=== PATIENT | female | born 1965 | race African-American/Black ===

== ENCOUNTER 2020-11-23 18:11 | Inpatient (IN) ==
[2020-11-23 20:54] LABS: Basophils % 0.7 % (0.0-0.8); Eosinophils # 0.2 10*3/uL (0.0-0.87); Eosinophils % 2.6 % (0.00-10.9); Hematocrit 46.5 VOL% (35.7-47.0); Hemoglobin 15.4 GM/DL (12.0-16.0); Immature Granulocytes % 0.3 %; Immature Granulocytes Absolute 0.02 #; Lymphocytes # 1.4 10*3/uL (1.4-4.0); Lymphocytes % 22.8 % (21.3-54.2); Mean Corpuscular HGB Conc 33.1 GM/DL (32-36); Mean Corpuscular Volume 77.4 FL (87-102); Mean Platelet Volume 11.1 FL (9.6-12.0); Monocytes % 11.1 % (1.7-12.7); Neutrophils % 62.5 % (38.7-73.9); Platelet Count 185 T/CUMM (130-400); Red Blood Count 6.01 MC/CUMM (3.8-5.5); White Blood Count 6.1 T/CUMM (4-12)
[2020-11-23 21:13] LABS: Albumin 3.7 G/DL (3.4-5.0); Bilirubin,Total 0.5 MG/DL (0.2-1.0); Ferritin 160.7 ng/ml (8-252); Osmolality,Calculated 265.7 MOS/KG (273-304); Potassium 3.3 MMOL/L (3.5-5.1); Total Protein 9.4 G/DL (5.0-7.5)
[2020-11-23 22:39] LABS: Lymphocytes 25 % (20-55); Platelet Estimate Normal; Segmented Neutrophils 64 % (50-85); Total Cells Counted 100
[2020-11-23 22:40] LABS: Anisocytosis 1+; Microcytosis 2+
[2020-11-23 22:43] LABS: Ovalocytes Slight; Target Cells Slight
[2020-11-23] MEDS ORDERED: DEXAMETHASONE 10 MG/1 ML VIAL IV STA (23:42)
[2020-11-24] MEDS ORDERED: AZITHROMYCIN INJ 500 MG in SODIUM CHLORIDE 0.9% 250 ML IV ONE (00:21)
[2020-11-24] MEDS ORDERED: DEXTROSE 50% 25 GM/50 ML VIAL IV PRN (00:45)
[2020-11-24] MEDS ORDERED: ACETAMINOPHEN 325 MG TABLET PO PRN (00:45)
[2020-11-24] MEDS ORDERED: DOCUSATE SODIUM 100 MG CAPSULE PO PRN (00:45)
[2020-11-24] MEDS ORDERED: GLUCAGON 1 MG VIAL IM PRN (00:45)
[2020-11-24] MEDS ORDERED: hydrALAZINE 20 MG/1 ML VIAL IV PRN (00:45)
[2020-11-24] MEDS ORDERED: ONDANSETRON 4 MG/2 ML VIAL IV PRN (00:45)
[2020-11-24] MEDS ORDERED: SODIUM CHLORIDE 0.9% 1,000 ML IV SCH (01:00)
[2020-11-24] MEDS ORDERED: MAGNESIUM SULF RIDER 2 GM in PREMIX 1 EACH IV PRN (01:06)
[2020-11-24] MEDS ORDERED: MAGNESIUM SULF RIDER 4 GM in PREMIX 1 EACH IV PRN (01:06)
[2020-11-24] MEDS: ENOXAPARIN 40 MG/0.4 ML SYRINGE SUBCUT SCH ×2 (02:18→20:05)
[2020-11-24] MEDS: POTASSIUM CHLORIDE 20 MEQ TABLET PO PRN ×3 (02:18→05:39)
[2020-11-24 03:58] LABS: Basophils % 0.5 % (0.0-0.8); Hematocrit 43.9 VOL% (35.7-47.0); Hemoglobin 14.1 GM/DL (12.0-16.0); Immature Granulocytes % 0.2 %; Immature Granulocytes Absolute 0.01 #; Lymphocytes # 1.2 10*3/uL (1.4-4.0); Lymphocytes % 20.2 % (21.3-54.2); Mean Corpuscular HGB Conc 32.1 GM/DL (32-36); Mean Corpuscular Volume 78.8 FL (87-102); Mean Platelet Volume 11.3 FL (9.6-12.0); Monocytes % 6.4 % (1.7-12.7); Neutrophils % 72.7 % (38.7-73.9); Platelet Count 182 T/CUMM (130-400); Red Blood Count 5.57 MC/CUMM (3.8-5.5); Red Cell Distribution Width 16.2 % (9.3-17.3)
[2020-11-24 04:26] LABS: Ferritin 110.4 ng/ml (8-252)
[2020-11-24 04:53] LABS: Calcium 8.8 MG/DL (8.5-10.1); Osmolality,Calculated 263.8 MOS/KG (273-304); Potassium 3.8 MMOL/L (3.5-5.1)
[2020-11-24] MEDS: ALBUTEROL INHALER 18 GM INH SCH ×3 (06:45→18:05)
[2020-11-24 07:14] LABS: Platelet Estimate Normal
[2020-11-24 07:15] LABS: Anisocytosis Slight
[2020-11-24] MEDS: DEXAMETHASONE 4 MG/1 ML VIAL IV SCH (08:28)
[2020-11-24] MEDS: CETIRIZINE 10 MG TABLET PO SCH (08:29)
[2020-11-24] MEDS: ZINC GLUCONATE 50 MG TABLET PO SCH (08:29)
[2020-11-24] MEDS: ASCORBIC ACID 500 MG TABLET PO SCH ×2 (08:29→20:05)
[2020-11-24] MEDS: CHOLECALCIFEROL 1,000 UNIT TABLET PO SCH (08:29)
[2020-11-24] MEDS: FAMOTIDINE 20 MG TABLET PO SCH ×2 (08:29→20:05)
[2020-11-24] MEDS ORDERED: REMDESIVIR 200 MG in SODIUM CHLORIDE 0.9% 210 ML IV ONE (09:30)
[2020-11-24] MEDS: cefTRIAXone 1,000 MG in SYRINGE 1 EACH IV SCH (11:58)
[2020-11-24] MEDS: MELATONIN 3 MG TABLET PO PRN (20:05)
[2020-11-25] MEDS: ALBUTEROL INHALER 18 GM INH SCH ×4 (00:15→20:16)
[2020-11-25 04:06] LABS: Basophils % 0.2 % (0.0-0.8); Hematocrit 40.6 VOL% (35.7-47.0); Hemoglobin 13.2 GM/DL (12.0-16.0); Immature Granulocytes % 0.2 %; Immature Granulocytes Absolute 0.01 #; Lymphocytes # 1.5 10*3/uL (1.4-4.0); Mean Corpuscular HGB Conc 32.5 GM/DL (32-36); Mean Corpuscular Volume 78.8 FL (87-102); Monocytes % 18.4 % (1.7-12.7); Neutrophils % 43.2 % (38.7-73.9); Platelet Count 201 T/CUMM (130-400); Red Blood Count 5.15 MC/CUMM (3.8-5.5); Red Cell Distribution Width 16.1 % (9.3-17.3)
[2020-11-25 04:19] LABS: Calcium 8.3 MG/DL (8.5-10.1); Osmolality,Calculated 275.1 MOS/KG (273-304); Potassium 3.7 MMOL/L (3.5-5.1)
[2020-11-25 04:21] LABS: Ferritin 183.9 ng/ml (8-252)
[2020-11-25 04:22] LABS: Albumin 2.8 G/DL (3.4-5.0); Bilirubin,Total 0.5 MG/DL (0.2-1.0); Calcium 8.2 MG/DL (8.5-10.1); Osmolality,Calculated 274.1 MOS/KG (273-304); Potassium 3.7 MMOL/L (3.5-5.1); Total Protein 7.5 G/DL (5.0-7.5)
[2020-11-25 07:29] LABS: Band Neutrophils 4 % (0-10); Lymphocytes 36 % (20-55); Segmented Neutrophils 46 % (50-85); Total Cells Counted 100
[2020-11-25 07:30] LABS: Hypochromasia 2+; Platelet Estimate Normal
[2020-11-25] MEDS: ZINC GLUCONATE 50 MG TABLET PO SCH (08:15)
[2020-11-25] MEDS: CHOLECALCIFEROL 1,000 UNIT TABLET PO SCH (08:15)
[2020-11-25] MEDS: ASCORBIC ACID 500 MG TABLET PO SCH ×2 (08:15→20:17)
[2020-11-25] MEDS: AZITHROMYCIN 250 MG TABLET PO SCH (08:15)
[2020-11-25] MEDS: atenoloL 25 MG TABLET PO SCH (08:15)
[2020-11-25] MEDS: FAMOTIDINE 20 MG TABLET PO SCH ×2 (08:16→20:17)
[2020-11-25] MEDS: CETIRIZINE 10 MG TABLET PO SCH (08:18)
[2020-11-25] MEDS: DEXAMETHASONE 4 MG/1 ML VIAL IV SCH (08:20)
[2020-11-25] MEDS: cefTRIAXone 1,000 MG in SYRINGE 1 EACH IV SCH (08:29)
[2020-11-25] MEDS: REMDESIVIR 100 MG in SODIUM CHLORIDE 0.9% 100 ML IV SCH (09:30)
[2020-11-25] MEDS: ENOXAPARIN 40 MG/0.4 ML SYRINGE SUBCUT SCH (20:16)
[2020-11-25] MEDS: MELATONIN 3 MG TABLET PO PRN (20:17)
[2020-11-26] MEDS: ALBUTEROL INHALER 18 GM INH SCH ×2 (00:36→06:05)
[2020-11-26 06:15] LABS: Albumin 2.7 G/DL (3.4-5.0); Bilirubin,Total 1.5 MG/DL (0.2-1.0); Calcium 8.4 MG/DL (8.5-10.1); Ferritin 189.2 ng/ml (8-252); Osmolality,Calculated 279.7 MOS/KG (273-304); Potassium 3.3 MMOL/L (3.5-5.1); Total Protein 7.2 G/DL (5.0-7.5)
[2020-11-26] MEDS ORDERED: POTASSIUM CHLORIDE 20 MEQ/15 ML UDCUP PO ONE (08:23)
[2020-11-26] MEDS: REMDESIVIR 100 MG in SODIUM CHLORIDE 0.9% 100 ML IV SCH (08:47)
[2020-11-26] MEDS: DEXAMETHASONE 4 MG/1 ML VIAL IV SCH (08:47)
[2020-11-26] MEDS: cefTRIAXone 1,000 MG in SYRINGE 1 EACH IV SCH (08:47)
[2020-11-26] MEDS: AZITHROMYCIN 250 MG TABLET PO SCH (08:48)
[2020-11-26] MEDS: ZINC GLUCONATE 50 MG TABLET PO SCH (08:48)
[2020-11-26] MEDS: ASCORBIC ACID 500 MG TABLET PO SCH (08:48)
[2020-11-26] MEDS: CETIRIZINE 10 MG TABLET PO SCH (08:48)
[2020-11-26] MEDS: CHOLECALCIFEROL 1,000 UNIT TABLET PO SCH (08:49)
[2020-11-26] MEDS: FAMOTIDINE 20 MG TABLET PO SCH (08:49)
[2020-11-26] MEDS: atenoloL 25 MG TABLET PO SCH ×2 (08:49→09:03)
[2020-11-26 11:18] VITALS: BP 125/83
== END 2020-11-26 13:42 | disposition home or self-care (01) | DRG 177 ==
LOC: N.ED 18:11 → N.EDINP 23:41 → N.2E 11-24 01:39
PROVIDERS: ADMIT Internal Medicine; ATTEND Internal Medicine